=== PATIENT | female | born 1965 | race Caucasian/White ===

== ENCOUNTER 2023-01-08 11:30 | Outpatient (CLI) | payer OTHER, SELFPAY ==
[2023-01-08 13:01] LABS: Albumin Level 3.8 g/dL (3.5-5.2); Chloride 103 mmol/L (98-107); Chol HDL Ratio 3.58 mg/dL (0.0-4.40); Cholesterol 129 mg/dL (0-200); LDL Cholesterol Calculated 68 mg/dL (50-129); LDL HDL Ratio 1.89 RATIO (0.00-3.22); Sodium 138 mmol/L (136-145); Triglycerides 127 mg/dL (0-150)
[2023-01-08 13:03] LABS: Estmated Average Glucose 128; Hemoglobin A1C 6.1 % (4.0-6.0)
[2023-01-08 13:47] LABS: Alanine Aminotransferase 127 U/L (0-33); Alkaline Phosphatase 114 U/L (35-105); Anion Gap 14.9 (5-19); Aspartate Amino Transferase 46 U/L (0-32); Blood Urea Nitrogen 22 mg/dL (6-20); Calcium 9.5 mg/dL (8.5-10.5); Carbon Dioxide 25 mmol/L (22-29); Free T4 Free Thyroxine 1.02 ng/dL (0.82-1.77); Globulin 3.1 g/dL (1.3-4.6); Glomerular Filtration Rate 74.5 mL/min (90-130); Glucose 119 mg/dL (65-115); HDL Cholesterol 35 mg/dL (60-100); Osmolality Calculated 288 mOsm/kg (285-295); Thyroid Stimulating Hormone 1.52 uIU/mL (0.27-4.20); Total Bilirubin 0.4 mg/dL (0.15-1.2); Total Protein 6.9 g/dL (6.6-8.7)
[2023-01-08 15:23] LABS: Lipase 34 U/L (13-60)
[2023-01-09 09:10] LABS: T3 Total 101 ng/dL (76-181)
[2023-01-11 10:59] LABS: Hepatitis A Antibody IgM Non-Reactive (Nonreactive); Hepatitis B Core AB, Total Non-Reactive (Nonreactive); Hepatitis B Surface AB 3.5 (11.5-1000); Hepatitis B Surface Antigen Non-Reactive (Nonreactive)
[2023-01-11 11:40] LABS: Hepatitis C Virus Antibody Reactive (Nonreactive)
[2023-01-12 22:59] LABS: HEP C RNA Viral Load Quant 4.64 Log IU/mL (NOT DETECTED); HEP C RNA Viral Load Quant 44000 IU/mL (NOT DETECTED)
== END 2023-01-08 11:31 | disposition home or self-care (01) ==
LOC: LAB 11:37
PROVIDERS: PCP Family Medicine; Visit Provider Internal Medicine
DX: E03.9 Hypothyroidism, unspecified (principal); E78.2 Mixed hyperlipidemia; E11.9 Type 2 diabetes mellitus without complications; Z79.899 Other long term (current) drug therapy
CPT/HCPCS: 36415; 80053; 80061; 83036; 83690; 84439; 84443; 84480; 86705; 86706; 86709; 86803; 87340; 87522

== ENCOUNTER 2023-02-22 09:21 | Outpatient (CLI) | payer OTHER, SELFPAY ==
[2023-02-22 10:32] LABS: Lipase 58 U/L (13-60)
== END 2023-02-22 09:22 | disposition home or self-care (01) ==
PROVIDERS: PCP Family Medicine; Visit Provider Internal Medicine
DX: E78.2 Mixed hyperlipidemia (principal); E03.9 Hypothyroidism, unspecified; E11.9 Type 2 diabetes mellitus without complications; R74.01 Elevation of levels of liver transaminase levels
CPT/HCPCS: 83690

== ENCOUNTER → 2023-02-23 11:01 | Outpatient (BNVA) | payer OTHER, SELFPAY | PROVIDERS: PCP Family Medicine; Visit Provider Student in an Organized Health Care Education/Training Program | DX: B19.20 Unspecified viral hepatitis C without hepatic coma (principal); Z11.4 Encounter for screening for human immunodeficiency virus [HIV]; Z11.3 Encounter for screening for infections with a predominantly sexual mode of transmission | CPT/HCPCS: 36415; 86592; 87806; 87902 ==

== ENCOUNTER 2023-03-19 07:28 | Outpatient (CLI) | payer OTHER, SELFPAY ==
--- NOTE | 2023-03-19 08:00 | US_ITS ---
WS: [id number] ULTRASOUND ABDOMEN LIMITED CLINICAL INFORMATION: Liver enzymes COMPARISON: 6 FINDINGS: Liver Size: Enlarged Craniocaudal length: 20.0 cm. Echogenicity: Coarse Surface nodularity: None. Mass (size and location): None. Bile ducts Intrahepatic ducts: Normal. Common bile duct diameter: 0.6 cm. Gallbladder Shadowing cholelithiasis Gallstones: Present Gallbladder sludge: None. Gallbladder wall thickening: None. Pericholecystic fluid: None. Sonographic Rangel sign: Absent. Pancreas Normal as visualized. Right kidney: Normal. Hydronephrosis: None. Size: 9.2 cm x 5.6 cm x 5.0 cm. Abdominal aorta and IVC Visualized portions are normal. Ascites: None. US/US liver [id number] IMPRESSION: 1. Hepatomegaly with coarse hepatic echogenicity likely due to hepatocellular disease and/or fatty infiltration.Correlation with liver function tests. 2. Dense shadowing cholelithiasis. No gallbladder wall thickening or perichol ecystic fluid. Normal common bile duct. 3. No hydronephrosis in RIGHT kidney
== END 2023-03-19 07:29 | disposition home or self-care (01) ==
PROVIDERS: PCP Family Medicine; Visit Provider Internal Medicine
DX: K80.20 Calculus of gallbladder without cholecystitis without obstruction (principal); R16.0 Hepatomegaly, not elsewhere classified; E78.2 Mixed hyperlipidemia
CPT/HCPCS: 76705

== ENCOUNTER → 2023-04-18 14:29 | Outpatient (BNVA) | payer OTHER, SELFPAY | PROVIDERS: Visit Provider Internal Medicine | DX: E78.2 Mixed hyperlipidemia (principal); E03.9 Hypothyroidism, unspecified; R74.01 Elevation of levels of liver transaminase levels | CPT/HCPCS: 36415; 80053; 80061; 82044; 83036; 84439; 84443 ==

== ENCOUNTER → 2023-11-02 09:32 | Outpatient (BNVA) | payer OTHER, SELFPAY | PROVIDERS: Visit Provider Internal Medicine | DX: E03.9 Hypothyroidism, unspecified (principal); Z79.899 Other long term (current) drug therapy | CPT/HCPCS: 36415; 80053; 80061; 83036; 84439; 84443 ==

== ENCOUNTER 2024-01-28 08:45 | Outpatient (CLI) | payer OTHER, SELFPAY ==
[2024-01-28 09:55] LABS: Alanine Aminotransferase 63 U/L (0-33); Alkaline Phosphatase 49 U/L (35-105); Anion Gap 14.2 (5-19); Aspartate Amino Transferase 40 U/L (0-32); Blood Urea Nitrogen 20 mg/dL (6-20); Calcium 9.5 mg/dL (8.5-10.5); Carbon Dioxide 26 mmol/L (22-29); Chloride 102 mmol/L (98-107); Chol HDL Ratio 4.49 mg/dL (0.0-4.40); Cholesterol 184 mg/dL (0-200); Globulin 3.1 g/dL (1.3-4.6); Glomerular Filtration Rate 64.8 mL/min (90-130); Glucose 127 mg/dL (65-115); HDL Cholesterol 41 mg/dL (60-100); LDL Cholesterol Calculated 105 mg/dL (50-129); LDL HDL Ratio 2.56 RATIO (0.00-3.22); Osmolality Calculated 290 mOsm/kg (285-295); Potassium 4.2 mmol/L (3.5-5.1); Sodium 138 mmol/L (136-145); Thyroid Stimulating Hormone 5.46 uIU/mL (0.27-4.20); Total Bilirubin 0.3 mg/dL (0.15-1.2); Total Protein 7.1 g/dL (6.6-8.7); Triglycerides 191 mg/dL (0-150)
[2024-01-28 10:01] LABS: Creatinine Urine, Random 57 mg/dL (28-217); Microalbumin Random Urine 3 ug/dL (0-20)
[2024-01-28 10:02] LABS: Estmated Average Glucose 108; Hemoglobin A1C 5.4 % (4.0-6.0)
[2024-01-28 10:05] LABS: Microalbum Creatinine Ratio Ur 53 mg/dL (0-20)
== END 2024-01-28 08:46 | disposition home or self-care (01) ==
LOC: LAB 08:51
PROVIDERS: Visit Provider Internal Medicine
DX: E03.9 Hypothyroidism, unspecified (principal)
CPT/HCPCS: 36415; 80053; 80061; 82044; 83036; 84439; 84443

== ENCOUNTER 2024-06-24 07:42 | Outpatient (CLI) | payer OTHER, SELFPAY ==
[2024-06-24 08:30] LABS: Estmated Average Glucose 114; Hemoglobin A1C 5.6 % (4.0-6.0)
[2024-06-24 08:55] LABS: Alanine Aminotransferase 50 U/L (0-33); Albumin Level 4.1 g/dL (3.5-5.2); Alkaline Phosphatase 49 U/L (35-105); Blood Urea Nitrogen 24 mg/dL (6-20); Calcium 9.4 mg/dL (8.5-10.5); Carbon Dioxide 27 mmol/L (22-29); Chloride 105 mmol/L (98-107); Chol HDL Ratio 4.18 mg/dL (0.0-4.40); Cholesterol 163 mg/dL (0-200); Free T4 Free Thyroxine 1.21 ng/dL (0.82-1.77); Globulin 2.9 g/dL (1.3-4.6); Glomerular Filtration Rate 64.5 mL/min (90-130); Glucose 120 mg/dL (65-115); HDL Cholesterol 39 mg/dL (60-100); LDL Cholesterol Calculated 95 mg/dL (50-129); LDL HDL Ratio 2.44 RATIO (0.00-3.22); Osmolality Calculated 299 mOsm/kg (285-295); Sodium 142 mmol/L (136-145); Thyroid Stimulating Hormone 2.72 uIU/mL (0.27-4.20); Total Bilirubin 0.3 mg/dL (0.15-1.2); Triglycerides 147 mg/dL (0-150)
[2024-06-24 09:00] LABS: Anion Gap 14.4 (5-19); Aspartate Amino Transferase 33 U/L (0-32); Potassium 4.4 mmol/L (3.5-5.1)
== END 2024-06-24 07:43 | disposition home or self-care (01) ==
LOC: LAB 07:45
PROVIDERS: Visit Provider Internal Medicine
DX: E03.9 Hypothyroidism, unspecified (principal)
CPT/HCPCS: 36415; 80053; 80061; 83036; 84439; 84443

== ENCOUNTER → 2024-12-15 10:10 | Outpatient (BNVA) | payer OTHER, SELFPAY | PROVIDERS: Visit Provider Internal Medicine | DX: E78.2 Mixed hyperlipidemia (principal); E03.9 Hypothyroidism, unspecified; R74.01 Elevation of levels of liver transaminase levels; K59.09 Other constipation; I10 Essential (primary) hypertension; R53.83 Other fatigue; R63.5 Abnormal weight gain | CPT/HCPCS: 36415; 80053; 80061; 83036; 84439; 84443 ==

== ENCOUNTER 2025-06-22 09:11 | Outpatient (CLI) | payer OTHER, SELFPAY | END 2025-06-22 09:12 | disposition home or self-care (01) | LOC: LAB 09:12 | PROVIDERS: PCP Student in an Organized Health Care Education/Training Program; Visit Provider Internal Medicine | DX: E03.9 Hypothyroidism, unspecified (principal) | CPT/HCPCS: 36415; 80053; 80061; 83036; 84439; 84443 ==